=== PATIENT | female | born 1985 | race Two or more races ===

== ENCOUNTER 2025-03-25 21:12 | Emergency (ER) | payer OTHER, SELFPAY ==
--- OUTSIDE RECORDS SUMMARY | 2025-03-02 10:30 | XMS_ITS ---
Author Organization [facility] es Address [address] [place] [address] Care Team Providers Care Training And Documentation Specialist Name Role Phone Radha Dong Primary Care Provider [phone] REASON FOR VISIT stomach pains, rashes, joint pains Encounters Encounter Location Date Provider Diagnosis [address] [place] [address] 03/02/2025 Radha Dong Plan Of Treatment No Information Progress Notes * NENA RAMESH SDOB:[birth year] (39 yo F)Acc No.[id number]:03/02/2025 Progress Notes Patient: NENA HOUSTON Provider: Kyle Dong :1985 A ge:39 Y S ex:Female Date:03/02/2025 Address:[address] [place] [address], [address] [facility] Subjective: * Chief Complaints: * 1 . Stomach pains, rashes, joint pains. * Medical History: Objective: * Vitals: Assessment: Plan: * Treatment: * Images: * Electronic signature of Julia Dong NP on 03/25/2025 at 09:28 PM EDT Sign off status: Pending * Provider: Kyle Dong Date: 03/02/2025 Generated for Willi ng/Faritug/eTransmitting on: 0 03/25/2025 09:28 PM EDT
--- OUTSIDE RECORDS SUMMARY | 2025-03-07 11:15 | XMS_ITS ---
Author Organization [facility] es Address [address] [place] [address] Care Team Providers Care Dosier Operator Name Role Phone Radha Dong Primary Care Provider REASON FOR VISIT Stomach pain; rashes; joint pians Encounters Encounter Location Date Provider Diagnosis [address] [address] [place] [address] 03/07/2025 Radha Dong Plan Of Treatment No Information Progress Notes * NENA RAMESH SDOB:[birth year] (39 yo F)Acc No.[id number]:03/07/2025 Progress Notes Patient: NENA HOUSTON Provider: Kyle Dong :1985 A ge:39 Y S ex:Female Date:03/07/2025 Address:[address] [place] [address], [address], [facility] Subjective: * Chief Complaints: * 1 . Stomach pain; rashes; joint pians. * Medical History: Objective: * Vitals: Assessment: Plan: * Treatment: * Images: * Electronic signature of Julia Dong NP on 03/25/2025 at 09:28 PM EDT Sign off status: Pending * Provider: Kyle Dong Date: 03/07/2025 Generated for Willi ng/Faritug/eTransmitting on: 03/25/2025 09:28 PM EDT
[2025-03-25 21:19] VITALS: PULSE 109; TEMP 36.9; O2SAT 100; BMI 20.4
--- OUTSIDE RECORDS SUMMARY | 2025-03-25 21:28 | XMS_ITS | Patient Health Record ---
Author Organization [facility] es Address [address] [place] [address] Care Team Providers Care Business Process Modeler Name Role Phone Radha Vicente Primary Care Provider Bridgette Cuello Unavailable [phone] Paula Mckenzie Unavailable [phone] Allergies No Known Allergies Results Component Value Reference Range Notes CBC w/ Auto Diff Reviewed date:02/02/2025 11:40:21 AM Interpretation: Performing Lab: Notes/Report: [facility] [address] [place] [address] Original Ordering Provider: RADHA VICENTE WBC 8.8 4.0-11.0 E9/L RBC 4.5 4.3-5.9 E12/L HGB 13.7 12.0-16.0 gm/dL Hct 39.1 34.0-46.0 % RDW 13.6 10.9-14.2 % MCH 30.3 27.0-34.0 pg MCHC 35.0 31.4-36.0 gm/dL MCV 86.5 80.0-100.0 fL MPV 8.3 6.4-10.8 fL Platelet 377.0 150.0-500.0 E9/L Neutro Auto 45.7 36.0-75.0 % Lymph Auto 40.5 14.0-50.0 % Beltrami Auto 7.1 4.0-14.0 % Eos Auto 6.1 0.0-8.0 % Basophil Auto 0.6 0.0-2.0 % Neutro Absolute 4.0 2.0-7.5 E9/L Lymph Absolute 3.6 1.0-4.0 E9/L Beltrami Absolute 0.6 0.2-1.0 E9/L Eos Absolute 0.5 0.0-0.5 E9/L Basophil Absolute 0.1 0.0-0.2 E9/L Performing Lab see note UN - [facility] unless otherwise specified [address] [address] Vit B12 Reviewed date:02/02/2025 11:40:21 AM Interpretation: Performing Lab: Notes/Report: [facility] [address] [place] [address] Original Ordering Provider: RADHA VICENTE Vitamin B12 Lvl 1420 50-1500 pg/mL Performing Lab see note [facility] unless otherwise specified [address] [place] [address] TSH With T4fr Reflex Reviewed date:02/02/2025 11:40:21 AM Interpretation: Performing Lab: Notes/Report: [facility] [address] [place] [address] Original Ordering Provider: RADHA VICENTE TSH 2.43 0.34-5.60 mcIU/mL Performing Lab see note [facility] unless otherwise specified [address] [address] Lipid Panel Reviewed date:02/02/2025 11:40:21 AM Interpretation: Performing Lab: Notes/Report: [facility] [address] [place] [address] Original Ordering Provider: RADHA VICENTE Chol 176 120-200 mg/dL HDL 56 '>= 60 LOW RISK' '<= 40 HIGH RISK' LDL Direct 110 <=129 mg/dL Trig 116 <=149 mg/dL VLDL 23 7-40 mg/dL Performing Lab see note [facility] unless otherwise specified [address] [address] CMP Reviewed date:02/02/2025 11:40:21 AM Interpretation: Performing Lab: Notes/Report: [facility] [address] [place] [address] Original Ordering Provider: RADHA VICENTE Glucose Lvl 90 55-199 mg/dL BUN 18 5-21 mg/dL Creatinine 0.7 0.5-1.3 mg/dL Calcium Lvl 9.5 8.9-11.1 mg/dL Sodium Lvl 136 135-145 mmol/L Potassium Lvl 4.3 3.5-5.3 mmol/L Chloride 104 101-111 mmol/L CO2 27 21-31 mmol/L Alk Phos 59 21-98 Int._Unit/L Bili Total 0.3 0.0-1.1 mg/dL Albumin Lvl 4.4 3.3-5.0 gm/dL Total Protein 7.1 6.0-7.8 gm/dL ALT 5 6-46 Int._Unit/L AST 15 5-43 Int._Unit/L BUN/Creat Ratio 26 10-20 No Units AGAP 9 6-16 mEq/L Globulin 2.7 1.4-4.0 gm/dL A/G Ratio 1.6 1.1-2.2 Performing Lab see [facility] unless otherwise specified [address] [address] eGFR Reviewed date:02/02/2025 11:40:21 AM Interpretation: Performing Lab: Notes/Report: [facility] [address] [place] [address] Original Ordering Provider: RADHA VICENTE eGFR 111 >=59 mL/min/1.73 m2 Performing Lab see note [facility] unless otherwise specified [address] [place] [address] HgbA1c Reviewed date:02/02/2025 02:12:13 PM Interpretation: Performing Lab: Notes/Report: [facility] [address] [place] [address] Original Ordering Provider: RADHA VICENTE Hgb A1C % 5.2 <=5.9 % Performing Lab see note [facility] unless otherwise specified [address] [address] Insulin Lvl Reviewed date:02/06/2025 08:30:58 PM Interpretation: Performing Lab: Notes/Report: [facility] [address] [place] [address] Original Ordering Provider: RADHA VICENTE Insulin Lvl 8.2 2.6-24.9 mcIU/mL Performed at: [facility] [id number] PhD Mauricio Lozoya Performing Lab see note [facility] unless otherwise specified [address] [place] [address] Vitamin D 25 Hydroxy Reviewed date:02/02/2025 02:12:13 PM Interpretation: Performing Lab: Notes/Report: [facility] [address] [place] [address] Original Ordering Provider: RADHA VICENTE Vitamin D 25 Hydroxy 31.1 30.0-100.0 ng/mL Performing Lab see note [facility] unless otherwise specified [address] [place] [address] THINPREP PAP IN LIQUID Reviewed date:01/13/2025 08:55:18 AM Interpretation:Negative Performing Lab: Notes/Report: Negative THINPREP PAP. Negative Reason For Referral No Information Medications Medication SIG (Take, Route, Frequency, Duration) Notes Start Date End Date Status Venlafaxine HCl ER 150 MG 2 capsules wit h food Orally Once a day; Duration: 7 days 01/31/2025 Active Venlafaxine HCl ER 150 MG TAKE 1 CAPSULE BY MOUTH ONCE DAILY Oral; Duration: 90 Days Active Active Social History Sexual Hx: Question Answer Notes Had sex in the last 12 months (vaginal, oral, or anal)? Yes with Men only Depression Screening (PHQ-9): Question Answer Notes Little interest or pleasure in doing things Cata ral days Feeling down, depressed, or hopeless Nearly ever y day Trouble falling or staying asleep, or sleeping t oo much More than half the days Feeling tired or having little energy Nearly christie ry day Poor appetite or overeating Not at all Feeling bad about yourself-o r that you are a failure or have let yourself or your family down Several days Trouble concentrating on thi ngs, such as reading the newspaper or watching television Several days Moving or speaking so slowly that other people could have noticed. Or the opposite being so fidgety or restless that you have been moving around a lot more than usual Not at all Thoughts that you would be b germán off , or of hurting yourself in some way Not at all Total Score 11 Intepretation Moderate Depression AUDIT-C (Standard) Question Answer Notes Did you have a drink containing alcohol in the p ast year? No Points 0 Interpretation Negative Tobacco Control (Standard) Question Answer Notes Additional Findings: Tobacco user e-cigarette Problems Problem Type SNOMED Code ICD Code Onset Dates Problem Status W/U Status Risk Notes Problem Anxiety (59113336) Anxiety (F41.9) Active confirmed Problem PTSD (post-traumat ic stress disorder) (F43.10) Active confirmed Vital Signs Heart Rate 85 /min 01/31/2025 Temperature 98 degrees Fahrenheit 01/31/2025 Respiratory Rate 20 /min 01/31/2025 Oximetry 98 % 01/31/2025 Blood pressure diastolic 75 mm Hg 01/31/2025 Height 5ft 7in in 01/31/2025 Blood pressure systolic 114 mm Hg 01/31/2025 Weight 141 lbs 01/31/2025 BMI 22.08 kg/m2 01/31/2025 Encounters Encounter Location Date Provider Diagnosis [address] [address] 01/31/2025 Radha Vicente Post depressi on F53.0 and Anxiety F41.[address] [address] 02/02/2025 Bridgette Cuello PTSD (post-traumatic stress disorder) F43.10 Assessments Encounter Date Diagnosis (ICD Code) Assessment Notes Treatment Notes Treatment Clinical Notes Section Notes 01/31/2025 Anxiety (ICD-10 - F41.9) Anxiety has room for improvement, will increase Effexor. Discussed risks and side effects of medication. Patient denies SI/HI today. Follow up with [facility] behavioral health on 02/02/25. Patient verbalized understanding. 01/31/2025 Post depression (ICD-10 - F53.0) Effexor increased. Take medication as prescribed.Juliana cruz was instructed to call immediately or go to the emergency room first signs of worsening depression increased hopelessness or thoughts of suicide. Follow up with [facility] behavioral health on 02/02/25. Patient verbalizes understanding. Lab orders sent to [facility]. 02/02/2025 PTSD (post-traumatic stress disorder) (ICD-10 - F43.10) Plan Of Treatment No Information Insurance Providers Payer Name Payer Address Payer Phone Subscriber Number Group Number Insured Name Patient Relationship to Insured Coverage Start Date Coverage End Date [employer] [place] [employer] [address] [place] [phone] [id number] NENA OFWLER Self - patient is the insured 5 [facility] [address] [place] [address] [id number] CLINTON FOWLERECCA Self - patient is the insured 5 [employer] [place] Medicaid [address] [place] [address] [id number] CLINTON FOWLERECCA Self - patient is the insured [address] [place] [address] [address] [place] [address] [id number] CLINTON FOWLERECCA Self - patient is the insured 5 Medical (General) History Medical History History ICD Code depression anxiety Surgical History Surgery Date(Month/Year) Breast Implants Cyst Removal Rectal Prolapse Hospitalization History Reason Date(Month/Year) Child x4 see Surgical
--- OUTSIDE RECORDS SUMMARY | 2025-03-25 21:28 | XMS_ITS | Clinical Summary ---
Author Organization [facility] Address [address] [place] [address] Phone Care Team Providers Care Pattern Checker Name Role Phone Unavailable Primary Care Provider Unavailabl e Allergies No known active allergies Medications ARIPiprazole (Abilify) 5 mg tablet Take 1 tablet (5 mg) by mouth early in the morning.. 4 Active venlafaxine (Effexor) 75 mg tablet Take 2 tablets (150 mg) by mouth early in the morning.. 4 Active cephalexin (Keflex) 500 mg capsuleIndicati ons:Nasal deformity Take 1 capsule (500 mg) by mouth 2 times a day. 14 capsule 4 Active oxymetazoline (Afrin, oxymetazoline,) 0.05 % nasal sprayIndication s:Nasal congestion,Nicolette ated septum Administer 2 sprays into each nostril every 12 hours if needed for congestion for up to 2 days. Do not use for more than 3 days. 30 mL 4 Active sodium chloride (Hills) 0.65 % nasal sprayIndication s:Nasal congestion,Nicolette ated septum Administer 1 spray into each nostril if needed for congestion. 30 mL 12 4 08/23/20 25 Active mupirocin (Bactroban) 2 % ointmentIndicat ions:Nasal deformity,Nasal alar collapse,Hypert rophy of inferior nasal turbinate,Devia rogelio nasal septum Apply ointment liberally to surgical incision sites three times a day for 14 days 30 g 3 4 Active Active Problems Problem Noted Date Diagnosed Date Nasal alar collapse 08/29/2024 Depression 08/22/2024 Deviated septum 06/22/2024 Nasal congestion 06/22/2024 Hypertrophy of inferior nasal turbinate 06/22/20 24 Nasal deformity 06/22/2024 Encounters Date Type Department Care Team Description 03/02/2025 Telephone [facility] [address] [place] [address] Izzy Hill, FRED 01/27/2025 Telephone [facility] [address] [place] [address] Izzy Hill RN from Last 3 Months Social History Tobacco Use Types Packs/Day Years Used Date Smoking Tobacco: Never Passive Smoke Exposure: Never Smokeless Tobacco: Never Tobacco Cessation:Counseling Given: Not Answered Alcohol Use Standard Drinks/Week Comments Not Currently 0 (1 standard drink = 0.6 oz pur e alcohol) PHQ-2 Answer Date Recorded Patient Health Questionnaire-2 Score 0 08/29/2024 Comments No Sex and Gender Information Value Date Recorded Sex Assigned at Not on file Legal Sex Female 12:32 PM EDT Gender Identity Not on file Sexual Orientation Not on file Last Filed Vital Signs Vital Sign Reading Time Taken Comments Blood Pressure 126/72 08/22/2024 11:29 AM EST Pulse 90 08/22/2024 11:29 AM EST Temperature 37.1 C (98.8 F) 08/22/2024 11:29 AM EST Respiratory Rate 16 08/22/2024 11:29 AM EST Oxygen Saturation 97% 08/22/2024 11:29 AM EST Inhaled Oxygen Concentration - - Weight 64.4 kg (142 lb) 08/29/2024 7:53 AM EST Height 170.2 cm (5' 7 ) 08/29/2024 7:53 AM EST Body Mass Index 22.24 08/29/2024 7:53 AM EST Plan of Treatment Health Maintenance Due Date Last Done Comments HIV Screening 1985 Lipid Panel 1985 Yearly Adult Physical 1985 MMR Vaccines (1 of 1 - Stand dianne series) 11/18/1984 Varicella Vaccines (1 of 2 - 13+ 2-dose series) 11/18/1996 Hepatitis C Screening 11/18/2001 Hepatitis B Vaccines (1 of 3 - 19+ 3-dose series) 11/18/2002 Cervical Cancer Screening 11/18/2004 HPV/Cotest 11/18/2004 Pap Smear 11/18/2004 DTaP/Tdap/Td Vaccines (1 - Tdap) 11/18/2005 HPV Vaccines (1 - 3-dose sta ndard series) 11/18/2010 Mammogram 2023 COVID-19 Vaccine (1 - 2023-2 5 season) 2024 Influenza Vaccine (#1) 2025 Zoster Vaccines (1 of 2) 11/18/2033 HIB Vaccines Aged Out No longer eligi ble based on patient's age to complete this topic Hepatitis A Vaccines Aged Out No long er eligible based on patient's age to complete this topic IPV Vaccines Aged Out No longer eligi ble based on patient's age to complete this topic Meningococcal Vaccine Aged Out No mara eri eligible based on patient's age to complete this topic Pneumococcal Vaccine: Pediat rics and At-Risk Adult Patients Aged Out No longer pamela gible based on patient's age to complete this topic Rotavirus Vaccines Aged Out No longer eligible based on patient's age to complete this topic Insurance [employer]
--- NOTE | 2025-03-25 22:08 | ED.GENADUL1 ---
HPI HPI - General Adult General Chief complaint: Urogenital-Female Stated complaint: LUMP Time Seen by Provider: 03/25/25 21:22 Source: patient Mode of arrival: walk-in Limitations: no limitations History of Present Illness HPI narrative: cc - I believe I have worms in my anus and lesions on my vagina and maybe a parasite in my mouth Pt with anxiety, depression and recent hospitalization at [address] presents with concern for possible parasite infection. She said that there are worms in her anus and vagina and also lesions in the vaginal folds. She also has been obsessing about cleaning at her house and using cylinder checker and sprays continuously around the house after their cat was found to have worms . She denied any recent travel. She has a therapist and is scheduled for psych visit in a few days. She takes antidepressants and anxiolytics. Related Data Home Medications ?Medication ?Instructions ?Recorded ?Confirmed venlafaxine 150 mg 300 mg PO DAILY 03/25/25 03/25/25 capsule,extended release 24 hr (Effexor XR) Allergies Allergy/AdvReac Type Severity Reaction Status Date / Time No Known Drug Allergies Allergy Verified 03/25/25 21:24 Opioid HPI Opioid Management Most Recent Opioid Data: Last Pain Scale 5 Today, 21:19 PFSH PFSH Social History Little interest or pleasure in doing things: not at all Feeling down, depressed, or hopeless: not at all Exam Narrative Exam Narrative: Nurses notes and vital signs reviewed and patient is not hypoxic. afebrile Nurse Diandra Lee accompanied me for the exam. General: Well-appearing but anxious. Skin: Warm, dry, no pallor noted. Head: Normocephalic, atraumatic. Eye: Pupils are equal, round and EOMI. No scleral icterus. Ears, Nose, Mouth, and Throat: Oral mucosa is slightly dry - no lesions or other abnormalities noted. Cardiovascular: Regular Rate and Rhythm without murmur, gallop or rub. Respiratory: No accessory muscle use or respiratory distress. Lungs are clear to auscultation, no wheezing, rales or rhonchi Musculoskeletal: normal ROM GI: Abdomen is soft, non-distended. Normal bowel sounds. No tenderness to palpation. No rebound, guarding, or rigidity noted. Genital/anal: No pinworms or other anal abnormalities noted. No vaginal lesions or sores noted. Normal female vulva and inner vaginal mucosa. Neurological: A&O x4. No cranial nerve dysfunction observed. No truncal ataxia. Moves all extremities. Sensation intact. Psychiatric: Cooperative and interactive. Normal mood and affect. Constitutional Vital Signs, click to edit/add: Last Vital Signs Temp 98.5 F 03/25/25 21:19 Pulse 109 H 03/25/25 21:19 Resp 18 03/25/25 21:19 Pulse Ox 100 03/25/25 21:19 O2 Del Method Room Air 03/25/25 21:19 Course Vital Signs Vital signs: Vital Signs Temperature 98.5 F 03/25/25 21:19 Pulse Rate 109 H 03/25/25 21:19 Respiratory Rate 18 03/25/25 21:19 Pulse Oximetry 100 03/25/25 21:19 Oxygen Delivery Method Room Air 03/25/25 21:19 Temperature 98.5 F 03/25/25 21:19 Pulse Rate 109 H 03/25/25 21:19 Respiratory Rate 18 03/25/25 21:19 Pulse Oximetry 100 03/25/25 21:19 Oxygen Delivery Method Room Air 03/25/25 21:19 Medical Decision Making MDM Narrative Medical decision making narrative: Patient has concerns for possible parasitic infection. She has been obsessing about it since her cat was found to have worms . They got rid of the cat and the patient has been obsessively spraying and cleanign the house, she told me. she admits to drinking increased amounts of energy drinks to stay awake and has been concerned that parasites might have gotten into her anus, vagina and mouth. Exam does not reveal any evidence of parasitic infection. Pt given reassurance and she visibly calmed as nurse Diandra Enciso reassured her. She was discharged home and instructed to keep taking her meds for depression and anxiety and to see her psych providers for follow up as scheduled. Discharge Plan Discharge Chief Complaint: Urogenital-Female Clinical Impression: Anxiety Patient Disposition: Home, Self-Care Time of Disposition Decision: 22:14 Prescriptions / Home Meds: No Action venlafaxine [Effexor XR] 150 mg capsule,extended release 24hr 300 mg PO DAILY Print Language: Swedish Instructions: Anxiety (ED) Referrals: Physician,Non-Staff, MD [Primary Care Provider] - 1 week
== END 2025-03-25 22:21 | disposition home or self-care (01) ==
PROVIDERS: Emergency Provider Emergency Medicine
DX: F41.9 Anxiety disorder, unspecified (principal); Z79.899 Other long term (current) drug therapy; F32.A Depression, unspecified
CPT/HCPCS: 99281

== ENCOUNTER 2025-04-04 18:08 | Emergency (ER) | payer OTHER, SELFPAY ==
--- OUTSIDE RECORDS SUMMARY | 2025-03-06 04:15 | XMS_ITS ---
Author Organization [facility] es Address [address] [place] [address] Care Team Providers Care Vmware Architect Name Role Phone Radha Dong Primary Care Provider [phone] Paula Mckenzie [phone] REASON FOR VISIT Consult - Adult; DEPRESSION AND ANXIETY, PANIC ATTACKS Encounters Encounter Location Date Provider Diagnosis [address] [address] 03/06/2025 Paula Mckenzie Plan Of Treatment No Information Progress Notes * NENA RAMESH SDOB:[birth year] (39 yo F)Acc No.[id number]:03/06/2025 Behavioral Health Patient: NENA HOUSTON Provider: Thang Mckenzie CNP :1985 A ge:39 Y S ex:Female Date:03/06/2025 Address:[address] [place] [address], [address] [facility] Pcp:Radha Dong Subjective: * Chief Complaints: * 1 . Consult - Adult; DEPRESSION AND ANXIETY, PANIC ATTACKS. * Medical History: Objective: * Vitals: Assessment: Plan: * Treatment: Care Plan: * Problems: * Images: * Electronic signature of EDUAR Dumas on 04/04/2025 at 06:33 PM EDT Sign off status: Pending * Provider: Thang Mckenzie CNP Date: 0 03/06/2025 Generated for Printi ng/Faxing/eTransmitting on: 0 04/04/2025 06:33 PM EDT
--- OUTSIDE RECORDS SUMMARY | 2025-03-07 11:15 | XMS_ITS ---
Author Organization [facility] es Address [address] [place] [address] Care Team Providers Care Lead Etl Developer Name Role Phone Radha Dong Primary Care Provider REASON FOR VISIT Stomach pain; rashes; joint pians Encounters Encounter Location Date Provider Diagnosis [address] [address] [place] [address] 03/07/2025 Radha Dong Plan Of Treatment No Information Progress Notes * NENA RAMESH SDOB:[birth year] (39 yo F)Acc No.[id number]:03/07/2025 Progress Notes Patient: NENA HOUSTON Provider: Kyle Dong :1985 A ge:39 Y S ex:Female Date:03/07/2025 Address:[address] [place] [address], [address], [facility] Subjective: * Chief Complaints: * 1 . Stomach pain; rashes; joint pians. * Medical History: Objective: * Vitals: Assessment: Plan: * Treatment: * Images: * Electronic signature of Julia Dong NP on 04/04/2025 at 06:34 PM EDT Sign off status: Pending * Provider: Kyle Dong Date: 03/07/2025 Generated for Printi ng/Faritug/eTransmitting on: 04/04/2025 06:34 PM EDT
--- OUTSIDE RECORDS SUMMARY | 2025-03-30 05:30 | XMS_ITS ---
Author Organization [facility] Address [address] [place] [address] Care Team Providers Care Design Sales Consultant Name Role Phone Radha Dong Primary Care Provider Olivier Archer [phone] REASON FOR VISIT SKIN ISSUES Encounters Encounter Location Date Provider Diagnosis [facility] [address] [place] [address] 03/30/2025 Olivier Archer Plan Of Treatment No Information Progress Notes * NENA RAMESH SDOB:[birth year] (39 yo F)Acc No.[id number]:03/30/2025 Progress Notes Patient: NENA HOUSTON Appointment Provider: Twin Archer MD :1985 A ge:39 Y S ex:Female Date:03/30/2025 Address:[address] [place] [address], [address], [facility] Pcp:Radha Dong Subjective: * Chief Complaints: * 1 . SKIN ISSUES. * Medical History: Objective: * Vitals: Assessment: Plan: * Treatment: * Images: * Electronic signature of Samuel Archer MD on 04/04/2025 at 06:34 PM EDT Sign off status: Pending * Appointment Provider: Twin Archer MD Date: 03/30/2025 Generated for Printi ng/Faxing/eTransmitting on: 04/04/2025 06:34 PM EDT
[2025-04-04 18:28] VITALS: BP 119/78; PULSE 102; TEMP 36.4; O2SAT 100; BMI 20.4
--- OUTSIDE RECORDS SUMMARY | 2025-04-04 18:34 | XMS_ITS | Encounter Summary ---
Author Organization [facility] Address [address] [place] [address] Care Team Providers Care Roll Form Operator Name Role Phone Esequiel Hatfield MD Primary Care Provider [phone] Encounter Details Date Type Department Care Team (Late Contact Info) Description 03/09/2025 External Result Encounter [facility] External Department Unsolicited Paresh Clark MD [address] [facility] [address] [place] [address] Social History Tobacco Use Types Packs/Day Years Used Date Smoking Tobacco: Never Smokeless Tobacco: Current Alcohol Use Standard Drinks/Week Comments Not Currently 0 (1 standard drink = 0.6 oz pur e alcohol) Comments Unknown Sex and Gender Information Value Date Recorded Sex Assigned at Not on file Legal Sex Female 8:37 AM EDT Gender Identity Not on file Sexual Orientation Not on file documented as of this encounter Plan of Treatment Upcoming Encounters Date Type Department Care Team (Late st Contact Info) Description 04/13/2025 9:55 AM EDT Office Visit [facility] [address] [facility] [address] [place] [address] Rosa Rosario, TAX ECONOMIST-ASSOCIATE PROFESSOR OF ART HISTORY [address] [place] [address] documented as of this encounter Procedures Procedure Name Priority Date/Time Associated Diagnosis Comments US PELVIS TRANSVAGINAL 03/09/2025 4:52 PM EDT documented in this encounter Results * US pelvis transvaginal (03/09/2025 4:52 PM EDT) Anatomical Region Laterality Modality Pelvis Ultrasound 03/09/2025 4:52 PM EDT Impressions 03/09/2025 4:59 PM EDT Similar findings of Complex endometrial complex with suspected blood. May correlate with recent . No active bleeding. Complex 2.3 cm cystic lesion left ovary. Color flow of both ovaries. Free fluid near the left ovary. Impression dictated by: Babar Chamorro M.D. 03/09/2025 4:56 PM Dictation Location: [facility]--20 Tech: Bela Curry Transcribed By: PWS 03/09/25 165 Dictated By: Babar Chamorro DO 03/09/25 165 Signed By: <Electronically signed by Babar Chamorro DO in OV> 03/09/25 1656 Narrative 03/09/2025 4:59 PM EDT [facility] Main [place] [address] [place] [address] Ultrasound Report Signed Patient: Rach Mon MR#: [id number] : 1985 Acct:[id number] Age/Sex: 39 / F ADM Date: 03/04/25 Loc: Room: [address] [place] [address] Type: ADM IN Attending Dr: Marcio Rollins MD Ordering Provider: PARESH CLARK MD Date of Service: 03/09/25 US/US transvaginal: recent , received cytotec 03/08/25. Copies to: MD PARESH Mahoney MD TRANSVAGINAL PELVIC ULTRASOUND HISTORY: Recent . Comparison examination 03/08/2025 FINDINGS: The uterus measures 9.9 x 5.0 x 6.3 cm. No uterine lesion identified. The endometrium has a total combined thickness of 1.4mm. Complex echogenicity. Ill-defined. Echogenic material within the endometrial cavity. Vascularity. Multiple components. Complex material in the cervix. The RIGHT ovary measures 3.4 x 1.8 x 1.5 cm. LEFT ovary measures 3.1 x 2.1 x 3.3 cm. Left ovary contains isoechoic component measuring 2.3 cm containing a anechoic component measuring 17 mm. Bilateral ovarian blood flow identified. Free fluid is adjacent to the left ovary. There is no adnexal mass identified. US/US transvaginal Procedure Note Radiology, Radiologist, - 03/09/2025 [facility] Main [place] [address] [place], [place] [id number] Ultrasound Report Signed Patient: Fer MonR#: [id number] : 1985Acct:[id number] Age/Sex: 39 / FADM Date: 03/04/25 Loc: Room: [id number]: ADM IN Attending Dr: Marcio Rollins MD Ordering Provider: PARESH CLARK MD Date of Service: 03/09/25 US/US transvaginal: recent , receivedcytotec 03/08/25. Copies to: MD PARESH Mahoney MD TRANSVAGINAL PELVIC ULTRASOUND HISTORY: Recent . Comparison examination 03/08/2025 FINDINGS: The uterus measures 9.9 x 5.0 x 6.3 cm. No uterine lesion identified. The endometrium has a total combined thickness of 1.4mm. Complexechogenicity. Ill-defined. Echogenic material within the endometrial cavity. Vascularity. Multiplecomponents. Complex material in the cervix. The RIGHT ovary measures 3.4 x 1.8 x 1.5 cm. LEFT ovary measures 3.1 x 2.1 x 3.3 cm. Left ovary contains isoechoiccomponent measuring 2.3 cm containing a anechoic component measuring 17 mm. Bilateral ovarian blood flow identified. Free fluid is adjacent to the left ovary. There is no adnexal mass identified. US/US transvaginal IMPRESSION: Similar findings of Complex endometrial complex with suspected blood. Maycorrelate with recent . No active bleeding. Complex 2.3 cm cystic lesionleft ovary. Color flow of both ovaries. Free fluid near the left ovary. Impression dictated by: Babar Chamorro M.D. 03/09/2025 4:56 PM Dictation Location: [place] [address] Tech: Bela Curry Transcribed By: TRESA 03/09/25 165 Dictated By: Babar Chamorro DO 03/09/25 1652 Signed By: <Electronically signed by Babar Chamorro, in OV> 03/09/25 1656 us Paresh Clark MD [facility] PROCEDURES Final Result documented in this encounter Visit Diagnoses Not on filedocumented in this encounter Care Teams Roll Form Operator Relationship Specialty Start Date End Date Esequiel Hatfield MD [address] [place] [address] PCP - General Internal Medicine 05/27/24 documented as of this encounter
--- OUTSIDE RECORDS SUMMARY | 2025-04-04 18:34 | XMS_ITS | Clinical Summary ---
Author Organization [facility] Address [address] [place] [address] Phone Care Team Providers Care Construction Field Engineer Name Role Phone Unavailable Primary Care Provider [...] days. 30 mL 4 Active sodium chloride ([place]) 0.65 % nasal sprayIndication s:Nasal congestion,Nicolette ated [...] Type Department Care Team Description 03/02/2025 Telephone [facility] [address] [place] [address] Izzy Hill, FRED 01/27/2025 Telephone [facility] [address] [place] [address] Izzy Hill RN from Last [...] 08/29/2024 7:53 AM EST Plan of Treatment Upcoming Encounters Date Type Department Care Team (Late st Contact Info) Description 04/06/2025 8:00 AM EDT Office Visit [facility] [address] [place] [address] Wilfrido Jean PA-C [address] [place], [place] [id number] Health Maintenance Due Date Last Done Comments HIV Screening 1985 Lipid Panel 1985 Yearly Adult Physical 1985 MMR Vaccines (1 of 1 - Stand dianne series) 11/18/1984 Hepatitis C Screening 11/18/2001 Hepatitis B Vaccines [...] patient's age to complete this topic Insurance [facility]
--- OUTSIDE RECORDS SUMMARY | 2025-04-04 18:35 | XMS_ITS | Patient Health Record ---
Author Organization [facility] Address [address] [place] [address] Care Team Providers Care Medical Reception Name Role Phone Radha Vicente Primary Care Provider Bridgette Cuello Unavailable [phone] Olivier Archer Unavailable [phone] JonahPaula triplett Unavailable [phone] Allergies No Known Allergies Results Component Value Reference Range Notes eGFR Reviewed date:02/02/2025 11:40:21 AM Interpretation: Performing Lab: Notes/Report: [facility] [address] [place] [address] Original Ordering Provider: RADHA VICENTE eGFR 111 >=59 mL/min/1.73 m2 Performing Lab see note UN - [facility] unless otherwise specified [address] [place], [place] [address] THINPREP PAP IN LIQUID Reviewed date:01/13/2025 08:55:18 AM Interpretation:Negative Performing Lab: Notes/Report: Negative THINPREP PAP. Negative Vitamin D 25 Hydroxy Reviewed date:02/02/2025 02:12:13 PM Interpretation: Performing Lab: Notes/Report: [facility] [address] [place] [address] Original Ordering Provider: RADHA VICENTE Vitamin D 25 Hydroxy 31.1 30.0-100.0 ng/mL Performing Lab see note [facility] unless otherwise specified [address] [place], [place] [address] Insulin Lvl Reviewed date:02/06/2025 08:30:58 PM Interpretation: Performing Lab: Notes/Report: [facility] [address] [place] [address] Original Ordering Provider: RADHA VICENTE Insulin Lvl 8.2 2.6-24.9 mcIU/mL Performed at: [facility] [address] [place], [place] [id number] PhD Mauricio Lozoya Performing Lab see [facility] unless otherwise specified [address] [place] [address] HgbA1c Reviewed date:02/02/2025 02:12:13 PM Interpretation: Performing Lab: Notes/Report: [facility] [address] [place] [address] Original Ordering Provider: RADHA VICENTE Hgb A1C % 5.2 <=5.9 % Performing Lab see note [facility] unless otherwise specified [address] [place] [address] CBC w/ Auto Diff Reviewed date:02/02/2025 11:40:21 AM Interpretation: Performing Lab: Notes/Report: [facility] [address] [place] [address] Original Ordering Provider: RADHA VICENTE WBC 8.8 4.0-11.0 E9/L RBC 4.5 4.3-5.9 E12/L HGB 13.7 12.0-16.0 gm/dL Hct 39.1 34.0-46.0 % RDW 13.6 10.9-14.2 % MCH 30.3 27.0-34.0 pg MCHC 35.0 31.4-36.0 gm/dL MCV 86.5 80.0-100.0 fL MPV 8.3 6.4-10.8 fL Platelet 377.0 150.0-500.0 E9/L Neutro Auto 45.7 36.0-75.0 % Lymph Auto 40.5 14.0-50.0 % [place] Auto 7.1 4.0-14.0 % Eos Auto 6.1 0.0-8.0 % Basophil Auto 0.6 0.0-2.0 % Neutro Absolute 4.0 2.0-7.5 E9/L Lymph Absolute 3.6 1.0-4.0 E9/L [place] Absolute 0.6 0.2-1.0 E9/L Eos Absolute 0.5 0.0-0.5 E9/L Basophil Absolute 0.1 0.0-0.2 E9/L Performing Lab see note [facility] unless otherwise specified [address] [place] [address] Vit B12 Reviewed date:02/02/2025 11:40:21 AM Interpretation: Performing Lab: Notes/Report: [facility] [address] [place] [address] Original Ordering Provider: RADHA VICENTE Vitamin B12 Lvl 1420 50-1500 pg/mL Performing Lab see note [facility] unless otherwise specified [address] [place] [address] TSH With T4fr Reflex Reviewed date:02/02/2025 11:40:21 AM Interpretation: Performing Lab: Notes/Report: [facility] [address] [place] [address] Original Ordering Provider: RADHA VICENTE TSH 2.43 0.34-5.60 mcIU/mL Performing Lab see note [facility] unless otherwise specified [address] [place] [address] Lipid Panel Reviewed date:02/02/2025 11:40:21 AM Interpretation: Performing Lab: Notes/Report: [facility] [address] [place] [address] Original Ordering Provider: RADHA VICENTE Chol 176 120-200 mg/dL HDL 56 '>= 60 LOW RISK' '<= 40 HIGH RISK' LDL Direct 110 <=129 mg/dL Trig 116 <=149 mg/dL VLDL 23 7-40 mg/dL Performing Lab see note [facility] unless otherwise specified [address] [place] [address] CMP Reviewed date:02/02/2025 11:40:21 AM Interpretation: Performing Lab: Notes/Report: [facility] [address] [place] [address] Original Ordering Provider: RADHA VICENTE Glucose Lvl [...] Ratio 1.6 1.1-2.2 Performing Lab see note [facility] unless otherwise specified [address] [place] [id number] Reason For Referral No Information Medications Medication [...] Status W/U Status Risk Notes Problem Anxiety (47360026) Anxiety (F41.9) Active confirmed Problem Posttraumatic stress disorder (96424587) PTSD (post-trauma tic stress disorder) (F43.10) Active confirmed Vital Signs Heart Rate 85 /min 01/31/2025 Temperature 98 degrees Fahrenheit 01/31/2025 Respiratory Rate 20 /min 01/31/2025 Oximetry 98 % 01/31/2025 Blood pressure diastolic 75 mm Hg 01/31/2025 Height 5ft 7in in 01/31/2025 Blood pressure systolic 114 mm Hg 01/31/2025 Weight 141 lbs 01/31/2025 BMI 22.08 kg/m2 01/31/2025 Encounters Encounter Location Date Provider Diagnosis [address] [address] 01/31/2025 Radha Vicente Post depressi on F53.0 and Anxiety F41.[address] [address] 02/02/2025 Bridgette Cuello PTSD (post-traumatic stress disorder) F43.10 Assessments Encounter Date Diagnosis (ICD Code) Assessment Notes Treatment Notes Treatment Clinical Notes Section Notes 01/31/2025 Anxiety (ICD-10 - F41.9) Anxiety has room for improvement, will increase Effexor. Discussed risks and side effects of medication. Patient denies SI/HI today. Follow up with [facility] behavioral health on 02/02/25. Patient verbalized understanding. 01/31/2025 Post depression (ICD-10 - F53.0) Effexor increased. Take medication as prescribed.Juliana cruz was instructed to call immediately or go to the emergency room first signs of worsening depression increased hopelessness or thoughts of suicide. Follow up with [facility] behavioral health on 02/02/25. Patient verbalizes understanding. Lab orders sent to [facility]. 02/02/2025 PTSD (post-traumatic stress disorder) (ICD-10 - F43.10) Plan Of Treatment No Information Insurance Providers Payer Name Payer Address Payer Phone Subscriber Number Group Number Insured Name Patient Relationship to Insured Coverage Start Date Coverage End Date [employer] [place] Medicaid [address] [place] [phone] [id number] RAKEL Palmer NENA Self - patient is the insured 5 [facility] [address] [place] [address] [phone] [id number] RAKEL Palmer NENA Self - patient is the insured 5 [employer] [place] Medicaid [address] [place] [phone] [id number] RAKEL Palmer NENA Self - patient is the insured [address] [place] [address] [address] [place] [address] [id number] RAKEL Palmer NENA Self - patient is the insured 5 Medical (General) History Medical History History ICD Code depression anxiety Surgical History Surgery Date(Month/Year) Breast Implants Cyst Removal Rectal Prolapse Hospitalization History Reason Date(Month/Year) Child x4 see Surgical
--- OUTSIDE RECORDS SUMMARY | 2025-04-04 18:35 | XMS_ITS | Encounter Summary ---
Author Organization [facility] Address [address] [place] [address] Care Team Providers Care Cancer Researcher Name Role Phone Esequiel Hatfield MD Primary Care Provider [phone] Encounter Details Date Type Department Care Team (Late Contact Info) Description 03/08/2025 External Result Encounter [facility] External Department Unsolicited Paresh Clark MD [address] [place] [address] Social History Tobacco Use Types Packs/Day Years [...] Office Visit [facility] [address] [facility] [address] [place] [address] Rosa Rosario, AIRPORT TRAFFIC CONTROLLER-COMMUNICATIONS PROGRAMMER [address] [place] [address] documented as of this encounter Procedures Procedure Name Priority Date/Time Associated Diagnosis Comments US PELVIS 03/08/2025 3:46 PM EDT documented in this encounter Results * US pelvis (03/08/2025 3:46 PM EDT) Anatomical Region Laterality Modality Pelvis Ultrasound 03/08/2025 3:46 PM EDT Narrative 03/08/2025 3:52 PM EDT [facility] Main [place] [address] [place] [address] Ultrasound Report Signed Patient: Rach Mon MR#: [id number] : 1985 Acct:[id number] Age/Sex: 39 / F ADM Date: 03/04/25 Loc: Room: [address] [place] [address] Type: ADM IN Attending Dr: Marcio Rollins MD Ordering Provider: Marcio Rollins MD; PARESH CLARK MD Date of Service: 03/08/25 US/US pelvic complete: recent ([id number]) US/US transvaginal: RECENT Copies to: MD PARESH Mahoney MD Pelvic ultrasound. Reason for exam: Decreased beta hCG. Vaginal bleeding. Comparison: none Technique: Transabdominal imaging of the uterus and ovaries was performed. Transvaginal imaging of the uterus and ovaries was also obtained. Additional spectral Doppler analysis of the ovaries was also obtained. Findings: Uterus measures 9.7 x 5.9 x 5.8 cm. No gestational sac is seen within the endometrial canal. The endometrium appears thickened and heterogenous in echotexture measuring 19 mm in greatest thickness suggestive of retained products of conception. The right ovary measures 2.8 x 1.1 x 2.4 cm. The left ovary measures 3.1 x 1.9 x 2.8 cm with a corpus luteum present. Normal arterial and venous Doppler waveforms of both ovaries are seen. No significant free fluid is noted. US/US transvaginal Impression: No gestational sac is seen within the endometrial canal. There appears to be thickened endometrium which appears heterogenous in echotexture likely relating to retained products of conception/miscarriage. Continued ultrasound follow-up and correlation with beta-hCG trend is suggested to ensure resolution. Impression dictated by: Candido Perez Jr., D.O. 03/08/2025 3:49 PM Dictation Location: [place] [address] Tech: Bela Curry Transcribed By: TRESA 03/08/25 1549 Dictated By: Candido Perez Jr, DO 03/08/25 1546 Signed By: <Electronically signed by Candido Perez Jr, DO in OV> 03/08/25 1549 Procedure Note Candido Perez Jr., DO - 03/08/2025 [facility] Main [place] [address] [place] [address] Ultrasound Report Signed Patient: Divya MoncaMR#: [id number] : 1985Acct:[id number] Age/Sex: 39 / FADM Date: 03/04/25 Loc: Room: [id number]: ADM IN Attending Dr: Marcio Rollins MD Ordering Provider: Marcio Rollins MD; PARESH CLARK MD Date of Service: 03/08/25 US/US pelvic complete: recent ([id number]) US/US transvaginal: RECENT Copies to: MD PARESH Mahoney MD Pelvic ultrasound. Reason for exam: Decreased beta hCG. Vaginal bleeding. Comparison: none Technique: Transabdominal imaging of the uterus and ovaries was performed.Transvaginal imaging of the uterus and ovaries was also obtained. Additional spectral Doppleranalysis of the ovaries was also obtained. Findings: Uterus measures 9.7 x 5.9 x 5.8 cm. No gestational sac is seenwithin the endometrial canal. The endometrium appears thickened and heterogenous in echotexturemeasuring 19 mm in greatest thickness suggestive of retained products of conception. Theright ovary measures 2.8 x 1.1 x 2.4 cm. The left ovary measures 3.1 x 1.9 x 2.8 cm with a corpusluteum present. Normal arterial and venous Doppler waveforms of both ovaries are seen. Nosignificant free fluid is noted. US/US transvaginal Impression: No gestational sac is seen within the endometrial canal.There appears to be thickened endometrium which appears heterogenous in echotexture likely relating toretained products of conception/miscarriage. Continued ultrasound follow-up and correlationwith beta- hCG trend is suggested to ensure resolution. Impression dictated by: Candido Perze Jr., D.OCornelio 03/08/2025 3:49 PM Dictation Location: [place] [address] Tech: Bela Curry Transcribed By: PWS 03/08/25 1549 Dictated By: Candido Perez Jr, DO 03/08/25 1546 Signed By: <Electronically signed by Candido Perez Jr, DO inOV> 03/08/25 1549 us Paresh Clark MD IMG US PROCEDURES Final Result documented in this encounter Visit Diagnoses Not on filedocumented in this encounter Care Teams Cancer Researcher Relationship Specialty Start Date End Date Esequiel Hatfield MD [address] [place] [address] PCP - General Internal Medicine 05/27/24 documented as of this encounter
--- NOTE | 2025-04-04 18:42 | PC.NURSE ---
PT STATES CYSTS ON LABIA AND THINK SHE HAS WORMS IN HER BODY.
[2025-04-04] MEDS: AZITHROMYCIN 250 MG TABLET 500 MG PO (19:15)
[2025-04-04] MEDS: CEFTRIAXONE 500 MG, LIDOCAINE HCL/PF 1 ML IM (19:15)
--- NOTE | 2025-04-04 19:21 | ED_ITS ---
HPI HPI - General Adult General Chief complaint: Urogenital-Female Stated complaint: GYNECOLOGICAL PROBLEM Time Seen by Provider: 04/04/25 18:24 Source: patient Mode of arrival: walk-in Limitations: no limitations History of Present Illness HPI narrative: 39-year-old female presents here with chief complaint of vaginal burning. Patient states she had seen Dr. Blanc recently and he had lanced 2 lesions . Patient presents here because she feels that she has an infection or something coming out of her vagina. She did have intercourse this morning which did not cause her pain. She is very sporadic with her complaints. She had been seen earlier last week for similar complaints and feeling a parasite infection. She is asking for an ivermectin prescription. Patient is very anxious. Related Data Home Medications ?Medication ?Instructions ?Recorded ?Confirmed venlafaxine 150 mg 300 mg PO DAILY 03/25/25 capsule,extended release 24 hr (Effexor XR) Previous Rx's ?Medication ?Instructions ?Recorded valacyclovir 500 mg tablet 500 mg PO Q12H 7 days #14 t abs 04/04/25 (Valtrex) Allergies Allergy/AdvReac Type Severity Reaction Status Date / Time No Known Drug Allergies Allergy Verified 04/04/25 18:28 Opioid HPI Opioid Management Most Recent Opioid Data: Last Pain Scale 5 03/25/25, 21:19 Review of Systems ROS Status of ROS 10 or more systems reviewed and unremark able except as noted in history and below PFSH PFSH Social History Little interest or pleasure in doing things: not at all Feeling down, depressed, or hopeless: not at all Exam Narrative Exam Narrative: All Systems are negative except as noted/marked.All systems reviewed and otherwise negative Nurses note and vital signs reviewed and patient is not hypoxic. General: The patient anxious and agitated Skin: Warm, dry, no pallor noted. There is no rash noted. Head: Normocephalic, atraumatic Eye: Normal conjunctiva, no drainage, EOMI. PERRL Ears, Nose, Mouth, and Throat: oral mucosa is moist. Nares patent. Mouth without vesicles. Ear canals patent. Tm's without Erythema Cardiovascular: Regular Rate and Rhythm Respiratory: Patient is in no distress, no accessory muscle use, lungs are clear to auscultation, no wheezing, rales or rhonchi Back: non-tender, no CVA tenderness bilaterally to percussion. GI: Normal bowel sounds, no tenderness to palpation, no masses appreciated. No rebound, guarding, or rigidity noted. gu: vaginal exam performed and cultures obtained, herpes simplex infection noted to left labia Musculoskeletal: The patient has no evidence of calf tenderness, no pitting e garrett, symmetrical pulses noted bilaterally Psychiatric: Agitated Constitutional Vital Signs, click to edit/add: Last Vital Signs Temp 97.6 F 04/04/25 18:28 Pulse 102 H 04/04/25 18:28 Resp 16 04/04/25 18:28 BP 119/78 04/04/25 18:28 Pulse Ox 100 04/04/25 18:28 O2 Del Method Room Air 04/04/25 18:28 Course Vital Signs Vital signs: Vital Signs Temperature 97.6 F 04/04/25 18:28 Pulse Rate 102 H 04/04/25 18:28 Respiratory Rate 16 04/04/25 18:28 Blood Pressure 119/78 04/04/25 18:28 Pulse Oximetry 100 04/04/25 18:28 Oxygen Delivery Method Room Air 04/04/25 18:28 Temperature 97.6 F 04/04/25 18:28 Pulse Rate 102 H 04/04/25 18:28 Respiratory Rate 16 04/04/25 18:28 Blood Pressure 119/78 04/04/25 18:28 Pulse Oximetry 100 04/04/25 18:28 Oxygen Delivery Method Room Air 04/04/25 18:28 Medical Decision Making [facility] Narrative Medical decision making narrative: 39-year-old female presents here with chief complaint of vaginal burning. Patient states she had seen Dr. Blanc recently and he had lanced 2 lesions . Patient presents here because she feels that she has an infection or something coming out of her vagina. She did have intercourse this morning which did not cause her pain. She is very sporadic with her complaints. She had been seen earlier last week for similar complaints and feeling a parasite infection. She is asking for an ivermectin prescription. Patient is very anxious. Patient is very anxious during examination. Patient did appear to have a herpes outbreak. She is very anxious and grabbing her cell phone trying to push the fluid out so I could see what is draining . Appears to be only serosanguineous fluid. Patient was given a shot of Rocephin and Zithromax here cultures were obtained. Patient demanded to leave immediately after medication was given stating she is going to break up with her boyfriend and he does not want to wait for her out in the lobby. Patient was given a prescription for Valtrex. She does state that she has an appoint with Dr. Blanc tomorrow morning. Differential Diagnosis Differential Diagnosis: sti, herpes, gonorrhea and chlamydia Medical Records Medical records reviewed: Yes I reviewed the patient's medical records Lab Data Lab results reviewed: Yes I reviewed the patient's lab results Discharge Plan Discharge Chief Complaint: Urogenital-Female Clinical Impression: Herpes Patient Disposition: Home, Self-Care Time of Disposition Decision: 19:17 Condition: Good Prescriptions / Home Meds: New valacyclovir [Valtrex] 500 mg tablet 500 mg PO Q12H 7 Days Qty: 14 0RF No Action venlafaxine [Effexor XR] 150 mg capsule,extended release 24hr 300 mg PO DAILY Print Language: Welsh Instructions: Genital Herpes Infection (ED) Referrals: YUMI BLANC [Physician, [employer]] - 04/05/25 Physician,Non-Staff, [Primary Care Provider] - 1 week
[2025-04-06 21:10] LABS: Neisseria gonorrhoeae, NAA Negative (Negative)
[2025-04-07 13:08] LABS: HSV-1 DNA Negative (Negative); HSV-2 DNA Negative (Negative)
== END 2025-04-04 19:20 | disposition home or self-care (01) ==
PROVIDERS: Physician Assistant; Emergency Provider Emergency Medicine
DX: B00.9 Herpesviral infection, unspecified (principal); N94.819 Vulvodynia, unspecified
CPT/HCPCS: 81001; 84703; 87491; 87529; 87591; 96372; 99285; J0696